=== PATIENT | male | born 1990 | race Caucasian/White ===

== ENCOUNTER 2016-09-02 01:28 | Emergency (ER) | payer OTHER ==
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
--- NOTE | 2016-09-02 02:16 | ED ORDER SUMMARY ---
..... Patient: RADHIKA COOK OrderSheet [facility] VisitID: [id number] [place] [address] 26y, M Registration Date/Time: 09/02/2016 ORDER SHEET Weight: 70.3 kg (stated) Allergies: No Known Drug Allergy GENERAL ORDERS: Hand 3 or 4V Right Urgent (01:58 09/02/2016 Rhonda RILEY) (Ack 2:03 Taya) (2:08 Ignacioger) - (steristrips right index finger.) (02:12 09/02/2016 Rhonda RILEY) (2:30 DBeyer R.N.) Splint (UE) (Right) (Metal / foam) (right index finger) (02:13 09/02/2016 Rhonda RILEY) (2:30 DBeyer R.N.) MEDICATION ORDERS: Hydrocodone-APAP PO 10/650 mg (NOW) (02:13 09/02/2016 Rhonda RILEY) (Ack 2:18 RCollier R.N.) (2:21 DBeyer R.N.) IV FLUIDS: ORDER SHEET NOTES: [Electronically signed by Alvin Hong R.N. (03:00 09/02/2016)] [Electronically signed by Altaf Uriarte MD (20:21 09/03/2016)] [Electronically locked/signed by Alvin Hong R.N. (03:00 09/02/2016)]
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
--- NOTE | 2016-09-02 02:16 | ED ORDER SUMMARY ---
..... Patient: RADHIKA COOK OrderSheet [facility] VisitID: [id number] [place] [address] 26y, M Registration Date/Time: 09/02/2016 ORDER SHEET Weight: 70.3 kg (stated) Allergies: No Known Drug Allergy GENERAL ORDERS: Hand 3 or 4V Right Urgent (01:58 09/02/2016 Rhonda RILEY) (Ack 2:03 Taya) (2:08 Ignacioger) - (steristrips right index finger.) (02:12 09/02/2016 Rhonda RILEY) (2:30 DBeyer R.N.) Splint (UE) (Right) (Metal / foam) (right index finger) (02:13 09/02/2016 Rhonda RILEY) (2:30 DBeyer R.N.) MEDICATION ORDERS: Hydrocodone-APAP PO 10/650 mg (NOW) (02:13 09/02/2016 Rhonda RILEY) (Ack 2:18 RCollier R.N.) (2:21 DBeyer R.N.) IV FLUIDS: ORDER SHEET NOTES: [Electronically signed by Alvin Hong R.N. (03:00 09/02/2016)] [Electronically signed by Altaf Uriarte MD (20:21 09/03/2016)] [Electronically locked/signed by Alvin Hong R.N. (03:00 09/02/2016)]
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
--- NOTE | 2016-09-02 06:09 | DIAGNOSTIC IMAGING REPORT ---
PROCEDURE: XR HAND 3 OR 4 VIEWS - RIGHT INDICATION: TRAUMA/INJURY TECHNIQUE: Three views. COMPARISON: None. FINDINGS: There is soft tissue swelling over the dorsum of the right hand. There is an old healed fracture of the right fifth metacarpal. The rest the osseous structures and joint spaces are normal. There is a radiopaque band overlying the wrist which obscures some of the detail IMPRESSION: 1. Soft tissue swelling of the dorsum, right hand. 2. Old healed fracture of the right fifth metacarpal.
--- NOTE | 2016-09-03 20:21 | ED MAR SUMMARY ---
..... Medication Administration Record [address] [place] [address] Patient: RADHIKA COOK Visit ID: [id number] 26y, M Weight: 70.3 kg Height/Length: 71 in BMI: 21.6 ALLERGIES: No Known Drug Allergy Given 02:21 09/02/2016 Alvin Hong RKwadwoNKwadwo Medication Administered: HYDROCODONE-APAP [PO] (HYDROCODONE-ACETAMINOPHEN), Dose: 2 tablet 5/325 mg Tablets PO. Medication Ordered: Hydrocodone-APAP PO 10/650 mg (NOW).
--- NOTE | 2016-09-03 20:21 | ED DISCHARGE INSTRUCTIONS ---
Patient: RADHIKA COOK General Instructions [facility] VisitID: [id number] [place] [address] 26y, M Registration Date/Time: 09/02/2016 Contusion to the right hand. Single superficial laceration to the right index finger.No foreign body present or right fingernail injury. INSTRUCTIONS Wear aluminum splint until released. Wear elastic wrap (Andrés wrap) as directed as needed. Protect wound and keep wound area clean. Leave dressing in place until seen in follow-up. Do not work with right hand until released. Warnings: INFECTION: Watch for signs of infection (increasing heat and redness, pus-like drainage, swelling, or increased pain). Return or see your doctor if these signs occur. Tetanus shot not given. GENERAL WARNINGS: Return or contact your physician immediately if your condition worsens or changes unexpectedly, if not improving as expected, or if other problems arise. OTC Medications: Acetaminophen (available over the counter): take according to label instructions. Motrin (available over the counter): take according to label instructions. Follow-up: Follow up with your doctor Thursday in four days. Call for an appointment. Understanding of the discharge instructions verbalized by patient. Discharge instructions reviewed with and understanding was verbalized by aircraft painter apprentice. ADDITIONAL INFORMATION Laceration (All Closures) Alaceration is a cut through the skin. This will usually require stitches (sutures) or tahmina if it is deep. Minor cuts may be treated with a surgical tape closure orskin glue. Home care The following guidelines will help you care for your laceration at home: Extremity, face, or trunk wounds Keep the wound clean and dry. If a bandage was applied and it becomes wet or dirty, replace it. Otherwise, leave it in place for the first 24 hours. If stitches or tahmina were used, clean the wound daily. After removing the bandage, wash the area with soap and water. Use a wet cotton swab to loosen and remove any blood or crust that forms. The doctor may prescribe an antibiotic cream or ointment to prevent infection. Do not stop taking this medication until you have finished the prescribed course or the doctor tells you to stop. The doctor may also prescribe medications for pain. Follow the doctors instructions for taking these medications. You may remove the bandage to shower as usual after the first 24 hours, but do not soak the area in water (no swimming) until the stitches or tahmina are removed. If surgical tape was used, keep the area clean and dry. If it becomes wet, blot it dry with a towel. If skin glue was used, do not scratch, rub, or pick at the adhesive film. Do not place tape directly over the film. Do not apply liquid, ointment, or creams to the wound while the film is in place. Do not clean the wound with peroxide and do not apply ointments. Avoid activities that cause heavy sweating until the film has fallen off. Protect the wound from prolonged exposure to sunlight or tanning lamps. You may shower as usual but do not soak the wound in water (no baths or swimming). The film will fall off by itself in 510 days. Scalp wounds During the first two days, you may carefully rinse your hair in the shower to remove blood, glass or dirt particles. After two days, you may shower and shampoo your hair normally. Do not soak your scalp in the tub or go swimming until the stitches or tahmina have been removed. Talk with your doctor before applying any antibiotic ointment to the wound. Mouth wounds Eat soft foods to reduce pain. If the cut is inside of your mouth, clean by rinsing after each meal and at bedtime with a mixture of equal parts water and hydrogen peroxide (do not swallow!). Or, you can use a cotton swab to directly apply hydrogen peroxide onto the cut. Mouth wounds can be painful when eating. You may use an [id number] local numbing solution for pain relief. If this is not available, you may use any numbing solution for teething babies. You may apply this directly to the sores with a cotton-tip swab or with your finger. Follow-up care Follow up with your health care provider. Most skin wounds heal within ten days. Mouth and facial wounds heal within five days. However, even with proper treatment, a wound infection may sometimes occur. Therefore, you should check the wound daily for signs of infection listed below. Stitches should be removed from the face within five days; stitches and tahmina should be removed from other parts of the body within 714 days. If dissolving stitches were used in the mouth, these will fall out or dissolve without the need for removal. If tape closures were used, remove them yourself if they have not fallen off after 7 days. Ifskin glue was used, the film will fall off by itself in 510 days. When to seek medical care Get prompt medical attention if any of these occur: Bleeding not controlled by direct pressure Signs of infection, including increasing pain in the wound, increasing wound redness or swelling, or pus coming from the wound Fever of 100.4F (38C) or higher, or as directed by your health care provider Stitches or tahmina come apart or fall out or surgical tape falls off before 7 days Wound edges re-open Contusion,Soft Tissue You have a CONTUSION, which is a bruise with swelling and some bleeding under the skin. There are no broken bones. This injury takes a few days to a few weeks to heal. Home Care: 1) Keep the injured part elevated to reduce pain and swelling. This is especially important during the first 48 hours. 2) Make an ice pack (ice cubes in a plastic bag, wrapped in a towel) and apply for 20 minutes every 1-2 hours the first day. Continue this 3-4 times a day until the pain and swelling goes away. 3) You may use acetaminophen (Tylenol) or ibuprofen (Motrin, Advil) to control pain, unless another pain medicine was prescribed. [ NOTE : If you have chronic liver or kidney disease or ever had a stomach ulcer or GI bleeding, talk with your doctor before using these medicines.] Follow Up with your doctor or this facility if you are not improving within the next THREE days. [NOTE: If X-rays were taken, they will be reviewed by a radiologist. You will be notified of any new findings that may affect your care.] Get Prompt Medical Attention if any of the following occur: -- Pain or swelling increases -- Injured arm or leg becomes cold, blue, numb or tingly -- Redness, warmth or drainage from the skin Andrés Wrap An "Andrés Bandage" refers to any elastic bandage wrap (2-6" wide). This is used to apply support and compression to an arm or leg. It will help prevent or reduce swelling also. When applying the bandage, it should not be stretched too tightly. A tight Andrés Wrap will reduce circulation and cause tingling or numbness in the hand or foot. It may increase the pain under the bandage. If you get these symptoms, remove the wrap and rest the limb. Symptoms should go away within 1-2 hours. Once symptoms go away, reapply the bandage with less stretch. If symptoms do not go away after 1-2 hours with the bandage off, call your doctor or return to this facility promptly. Laceration, Extremity (Sutures, Tahmina, Or Tape) A laceration is a cut through the skin. This will usually require stitches (sutures) or tahmina if it is deep. Minor cuts may be treated with surgical tape closures. Home care The following guidelines will help you care for your laceration at home: Keep the wound clean and dry. If a bandage was applied and it becomes wet or dirty, replace it. Otherwise, leave it in place for the first 24 hours, then change it once a day or as directed. If stitches or tahmina were used, clean the wound daily: After removing the bandage, wash the area with soap and water. Use a wet cotton swab to loosen and remove any blood or crust that forms. After cleaning, keep the wound clean and dry. Talk with your doctor before applying any antibiotic ointment to the wound. Reapply the bandage. You may remove the bandage to shower as usual after the first 24 hours, but do not soak the area in water (no swimming) until the stitches or tahmina are removed. If surgical tape closures were used, keep the area clean and dry. If it becomes wet, blot it dry with a towel. The doctor may prescribe an antibiotic cream or ointment to prevent infection. Do not stop taking this medication until you have finished the prescribed course or the doctor tells you to stop. The doctor may also prescribe medications for pain. Follow the doctors instructions for taking these medications. If you have chronic liver or kidney disease or ever had a stomach ulcer or GI bleeding, talk with your doctor before using these medicines. Follow-up care Follow up with your health care provider. Most skin wounds heal within ten days. However, an infection may sometimes occur despite proper treatment. Therefore, check the wound daily for the signs of infection listed below. Stitches and tahmina should be removed within 714 days. If surgical tape closures were used, you may remove them after 10 days, if they have not fallen off by then. Notify your doctor if you notice persistent numbness or weakness in the injured extremity. (Note:A radiologist will review any X-rays that were taken. We will notify you of any new findings that may affect your care.) When to seek medical care Get prompt medical attention if any of these occur: Increasing pain in the wound Redness, swelling, or pus coming from the wound Fever of 100.4F (38C) or higher, or as directed by your health care provider If stitches or tahmina come apart or fall out before your next appointment If the surgical tape closures fall off within seven days, or the wound edges re-open Bleeding not controlled by direct pressure You have been given the following additional information: Laceration, All Contusion, Soft Tissue Andrés Wrap Laceration, Extrem (Suture, Staple, Or Tape) Do not work with right hand until released. (Electronically signed by Altaf Uriarte MD 09/03/2016 20:21)
--- NOTE | 2016-09-03 20:21 | ED MED RECONCILIATION SUMMARY ---
Patient: RADHIKA COOK Medication Reconciliation Report [facility] VisitID: [id number] [place] [address] 26y, M Registration Date/Time: 09/02/2016 Weight: 70.3 kg Height/Length: 71 in. BMI: 21.6 ALLERGIES: No Known Drug Allergy The patient's Home Medications are listed below: NONE. The source(s) of the original Home Medication information: Not obtained. The following Medications were given to the patient in the Emergency Department: Hydrocodone-APAP [PO] PO 2 tablet, administered: 09/02/2016 2:21:00 AM The following Medications were prescribed to the patient: Acetaminophen (available over the counter): take according to label instructions. -- Altaf Uriarte MD Motrin (available over the counter): take according to label instructions. -- Altaf Uriarte MD
--- NOTE | 2016-09-03 20:21 | ED MED RECONCILIATION SUMMARY ---
Patient: RADHIKA COOK Medication Reconciliation Report [facility] VisitID: [id number] [place] [address] 26y, M Registration Date/Time: 09/02/2016 Weight: 70.3 kg Height/Length: 71 in. BMI: 21.6 ALLERGIES: No Known Drug Allergy The patient's Home Medications are listed below: NONE. The source(s) of the original Home Medication information: Not obtained. The following Medications were given to the patient in the Emergency Department: Hydrocodone-APAP [PO] PO 2 tablet, administered: 09/02/2016 2:21:00 AM The following Medications were prescribed to the patient: Acetaminophen (available over the counter): take according to label instructions. -- Altaf Uriarte MD Motrin (available over the counter): take according to label instructions. -- Altaf Uriarte MD
--- NOTE | 2016-09-03 20:21 | ED MAR SUMMARY ---
..... Medication Administration Record [address] [place] [address] Patient: RADHIKA COOK Visit ID: [id number] 26y, M Weight: 70.3 kg Height/Length: 71 in BMI: 21.6 ALLERGIES: No Known Drug Allergy Given 02:21 09/02/2016 Alvin Hong RKwadwoNKwadwo Medication Administered: HYDROCODONE-APAP [PO] (HYDROCODONE-ACETAMINOPHEN), Dose: 2 tablet 5/325 mg Tablets PO. Medication Ordered: Hydrocodone-APAP PO 10/650 mg (NOW).
== END 2016-09-02 02:52 | disposition home or self-care (01) ==
LOC: ED SRH 01:28
DX: S61.210A Laceration without foreign body of right index finger without damage to nail, initial encounter (principal); S60.221A Contusion of right hand, initial encounter; F17.210 Nicotine dependence, cigarettes, uncomplicated; W22.8XXA Striking against or struck by other objects, initial encounter; Y92.9 Unspecified place or not applicable; Y93.9 Activity, unspecified; Y99.9 Unspecified external cause status

== ENCOUNTER 2016-10-28 17:39 | Emergency (ER) | payer OTHER ==
--- NOTE | 2016-10-28 18:44 | ED ORDER SUMMARY ---
..... Patient: RADHIKA COOK OrderSheet [facility] VisitID: [id number] [place] [address] 26y, M Registration Date/Time: 10/28/2016 ORDER SHEET Weight: 68.0 kg (stated) Allergies: No Known Drug Allergy GENERAL ORDERS: MEDICATION ORDERS: Bactrim DS PO (Tablet 800-160 mg) 1 tab (NOW) (18:40 10/28/2016 Ramya Cunha) (Ack 18:49 Tamika R.N.) (18:49 Tamika R.N.) IV FLUIDS: ORDER SHEET NOTES: [Electronically signed by Basilia Escudero P.A.-C (18:47 10/28/2016)] [Electronically signed by Herb Duran R.N. (18:54 10/28/2016)] [Electronically locked/signed by Herb Duran R.N. (18:54 10/28/2016)]
--- NOTE | 2016-10-28 18:44 | ED NURSING NOTES ---
Clinical Report - Nurses [facility] [address] [place] [address] 10/28/2016 17:42 Patient: RADHIKA COOK TRIAGE Triage time 18:29. Acuity: LEVEL 4. Chief Complaint: SKIN LESION and TENDER AREA. --18:33 Neelima Holloway R.N. 18:29 10/28/16. BP: 132/84. HR: 111. RR: 16. O2 saturation: 99%. Temp: 98.4 F. Pain level now: 03/12. --18:33 Neelima Holloway R.N. Weight: 68 kg stated. Height/Length: 71 inches Per Patient. BMI: 20.9. --18:29 Neelima Holloway R.N. Medications None. --18:31 Neelima Holloway R.N. Allergies No Known Drug Allergy. --18:31 Neelima Holloway R.N. History Arrived by private vehicle. Historian: patient. Location - right leg and left leg. It is described as itchy and painful. ( patient has scabs all over LE, admits to meth). --18:33 Neelima Holloway R.N. PROBLEMS: Substance Abuse. --18:32 Neelima Holloway R.N. Interventions ID band on patient. To treatment room. --18:33 Neelima Holloway R.N. PHYSICAL ASSESSMENT GENERAL / NEURO / PSYCH: Alert. The patient does not appear to be in acute distress. Oriented X 4. HEENT: Mucous membranes are pink. RESPIRATORY: Respirations not labored. Breath sounds within normal limits. CVS: Capillary refill less than 2 seconds. Pulses within normal limits. GI / : Abdomen nontender. SKIN: Skin lesion present. Drainage. Increased warmth present. Erythema present. --18:34 Neelima Holloway R.N. NURSING PROGRESS NOTES The plan of care for this patient has been created. Patient gowned. Head of bed elevated. Patient identifiers checked. Side rails up x 1. Bed placed in lowest position. Brakes of bed on. Patient ready for evaluation- chart flagged. --18:34 Neelima Holloway R.N. 18:49 10/28/2016 Bactrim DS (Sulfamethoxazole-TMP DS) PO 1 tab given. Allergies verified and confirmed 5 rights. --18:49 Herb Duran R.N. DISPOSITION / DISCHARGE 18:51 10/28/16. The goals identified in the patient's plan of care were met. No learning barriers present. Discharge instructions provided and reviewed with the patient. Reviewed warnings. Reviewed medication(s). Treatments reviewed. Patient verbalized understanding. Written instructions provided in Uzbek. The patient was discharged by the physician. He was discharged home and accompanied by granite chip terrazzo finisher. He left the Emergency Department ambulatory and via private vehicle. Emergency Department Technician driving. FALL RISK ASSESSMENT: Fall risk assessment completed. No fall risk identified. --18:51 Herb Duran R.N. 18:51 10/28/16. BP: deferred. HR: deferred. RR: deferred. O2 saturation: deferred. Temp: deferred. Pain level now: 2/10. Additional comments: Refused DC vitals. --18:51 Herb Duran R.N. 18:51 10/28/16. Departure time: 18:51. --18:51 Herb Duran R.N. Locked/Released at 10/28/2016 18:54 by Herb Duran R.N.
--- NOTE | 2016-10-28 18:44 | ED ORDER SUMMARY ---
..... Patient: RADHIKA COOK OrderSheet [facility] VisitID: [id number] [place] [address] 26y, M Registration Date/Time: 10/28/2016 ORDER SHEET Weight: 68.0 kg (stated) Allergies: No Known Drug Allergy GENERAL ORDERS: MEDICATION ORDERS: Bactrim DS PO (Tablet 800-160 mg) 1 tab (NOW) (18:40 10/28/2016 Ramya Cunha) (Ack 18:49 Tamika R.N.) (18:49 Tamika R.N.) IV FLUIDS: ORDER SHEET NOTES: [Electronically signed by Basilia Escudero P.A.-C (18:47 10/28/2016)] [Electronically signed by Herb Duran R.N. (18:54 10/28/2016)] [Electronically locked/signed by Herb Duran R.N. (18:54 10/28/2016)]
--- NOTE | 2016-10-28 18:44 | ED CLINICAL REPORT ---
Clinical Report - Physicians/Mid Levels [facility] [address] [place] [address] 10/28/2016 17:42 Patient: RADHIKA COOK Time Seen: 18:32; initial patient contact. Arrived- By private vehicle. HISTORY OF PRESENT ILLNESS Chief Complaint: SKIN RASH. (Patient presents with sores on legs over the last few weeks. Reports history of meth use. Reports things crawling on his skin. Reports things have been possibly draining from the wound. Denies any fevers. Denies any injury. Denies any shortness of breath or chest pain.). REVIEW OF SYSTEMS No fever, difficulty breathing or lump in throat. All systems otherwise negative, except as recorded above. PAST HISTORY Problems: Substance Abuse. Laceration. Contusion. Medications: None. Allergies: No Known Drug Allergy. SOCIAL HISTORY History of heavy IV drug use: methamphetamines. ADDITIONAL NOTES The nursing notes have been reviewed. PHYSICAL EXAM Vital Signs: 10/28/2016 18:29 BP: 132/84. HR: 111. RR: 16. O2 saturation: 99%. Temp: 98.4 F. Pain level now: 8/10. Appearance: Alert. ENT: Ears normal. Nose normal. Pharynx normal. No pharyngeal erythema or swelling. Neck: Neck supple. No lymphadenopathy. CVS: Normal heart rate and rhythm. Heart sounds normal. Respiratory: No respiratory distress. Breath sounds normal. Abdomen: No abdominal tenderness. Skin: No erythema. No tender indurated area. No cellulitis. Rash present on the trunk. Rash present on the right lower extremity and left lower extremity. The rash is maculopapular. PROGRESS AND PROCEDURES Course of Care: Patient here in the ER with multiple lesions, I less than ermelinda size on bilateral lower extremities, as well as abdomen, no surrounding swelling, or erythema. Scab-looking I, patient's actively picking at these lesions, suspect MRSA, afebrile with no sob/ chest pain. 10/28/2016 18:29 BP: 132/84. HR: 111. RR: 16. O2 saturation: 99%. Temp: 98.4 F. Pain level now: 03/12. Patient is stable. Patient/family counseled. Disposition: Discharged. CLINICAL IMPRESSION Substance abuse problems: abuse of methamphetamine. MRSA (Methicillin resistant Staph aureus) located on the right thigh, right lower leg, left thigh and left lower leg. INSTRUCTIONS Prescription Medications: Bactrim DS 800 mg / 160 mg: take 1 tablet orally every 12 hours for 10 days. No refill. Substitution is permissible. Follow-up: Follow up with your doctor in three as needed. (Electronically signed by Basilai Escudero P.A.-C 10/28/2016 18:47)
--- NOTE | 2016-10-28 18:44 | ED NURSING NOTES ---
Clinical Report - Nurses [facility] [address] [place] [address] 10/28/2016 17:42 Patient: RADHIKA COOK TRIAGE Triage time 18:29. Acuity: LEVEL 4. Chief Complaint: SKIN LESION and TENDER AREA. --18:33 Neelima Holloway R.N. 18:29 10/28/16. BP: 132/84. HR: 111. RR: 16. O2 saturation: 99%. Temp: 98.4 F. Pain level now: 03/12. --18:33 Neelima Holloway R.N. Weight: 68 kg stated. Height/Length: 71 inches Per Patient. BMI: 20.9. --18:29 Neelima Holloway R.N. Medications None. --18:31 Neelima Holloway R.N. Allergies No Known Drug Allergy. --18:31 Neelima Holloway R.N. History Arrived by private vehicle. Historian: patient. Location - right leg and left leg. It is described as itchy and painful. ( patient has scabs all over LE, admits to meth). --18:33 Neelima Holloway R.N. PROBLEMS: Substance Abuse. --18:32 Neelima Holloway R.N. Interventions ID band on patient. To treatment room. --18:33 Neelima Holloway R.N. PHYSICAL ASSESSMENT GENERAL / NEURO / PSYCH: Alert. The patient does not appear to be in acute distress. Oriented X 4. HEENT: Mucous membranes are pink. RESPIRATORY: Respirations not labored. Breath sounds within normal limits. CVS: Capillary refill less than 2 seconds. Pulses within normal limits. GI / : Abdomen nontender. SKIN: Skin lesion present. Drainage. Increased warmth present. Erythema present. --18:34 Neelima Holloway R.N. NURSING PROGRESS NOTES The plan of care for this patient has been created. Patient gowned. Head of bed elevated. Patient identifiers checked. Side rails up x 1. Bed placed in lowest position. Brakes of bed on. Patient ready for evaluation- chart flagged. --18:34 Neelima Holloway R.N. 18:49 10/28/2016 Bactrim DS (Sulfamethoxazole-TMP DS) PO 1 tab given. Allergies verified and confirmed 5 rights. --18:49 Herb Duran R.N. DISPOSITION / DISCHARGE 18:51 10/28/16. The goals identified in the patient's plan of care were met. No learning barriers present. Discharge instructions provided and reviewed with the patient. Reviewed warnings. Reviewed medication(s). Treatments reviewed. Patient verbalized understanding. Written instructions provided in Faroese. The patient was discharged by the physician. He was discharged home and accompanied by head automatic sawyer. He left the Emergency Department ambulatory and via private vehicle. Biller driving. FALL RISK ASSESSMENT: Fall risk assessment completed. No fall risk identified. --18:51 Herb Duran R.N. 18:51 10/28/16. BP: deferred. HR: deferred. RR: deferred. O2 saturation: deferred. Temp: deferred. Pain level now: 2/10. Additional comments: Refused DC vitals. --18:51 Herb Duran R.N. 18:51 10/28/16. Departure time: 18:51. --18:51 Herb Duran R.N. Locked/Released at 10/28/2016 18:54 by Herb Duran R.N.
--- NOTE | 2016-10-28 18:44 | ED CLINICAL REPORT ---
Clinical Report - Physicians/Mid Levels [facility] [address] [place] [address] 10/28/2016 17:42 Patient: RADHIKA COOK Time Seen: 18:32; initial patient contact. Arrived- By private vehicle. HISTORY OF PRESENT ILLNESS Chief Complaint: SKIN RASH. (Patient presents with sores on legs over the last few weeks. Reports history of meth use. Reports things crawling on his skin. Reports things have been possibly draining from the wound. Denies any fevers. Denies any injury. Denies any shortness of breath or chest pain.). REVIEW OF SYSTEMS No fever, difficulty breathing or lump in throat. All systems otherwise negative, except as recorded above. PAST HISTORY Problems: Substance Abuse. Laceration. Contusion. Medications: None. Allergies: No Known Drug Allergy. SOCIAL HISTORY History of heavy IV drug use: methamphetamines. ADDITIONAL NOTES The nursing notes have been reviewed. PHYSICAL EXAM Vital Signs: 10/28/2016 18:29 BP: 132/84. HR: 111. RR: 16. O2 saturation: 99%. Temp: 98.4 F. Pain level now: 8/10. Appearance: Alert. ENT: Ears normal. Nose normal. Pharynx normal. No pharyngeal erythema or swelling. Neck: Neck supple. No lymphadenopathy. CVS: Normal heart rate and rhythm. Heart sounds normal. Respiratory: No respiratory distress. Breath sounds normal. Abdomen: No abdominal tenderness. Skin: No erythema. No tender indurated area. No cellulitis. Rash present on the trunk. Rash present on the right lower extremity and left lower extremity. The rash is maculopapular. PROGRESS AND PROCEDURES Course of Care: Patient here in the ER with multiple lesions, I less than ermelinda size on bilateral lower extremities, as well as abdomen, no surrounding swelling, or erythema. Scab-looking I, patient's actively picking at these lesions, suspect MRSA, afebrile with no sob/ chest pain. 10/28/2016 18:29 BP: 132/84. HR: 111. RR: 16. O2 saturation: 99%. Temp: 98.4 F. Pain level now: 03/12. Patient is stable. Patient/family counseled. Disposition: Discharged. CLINICAL IMPRESSION Substance abuse problems: abuse of methamphetamine. MRSA (Methicillin resistant Staph aureus) located on the right thigh, right lower leg, left thigh and left lower leg. INSTRUCTIONS Prescription Medications: Bactrim DS 800 mg / 160 mg: take 1 tablet orally every 12 hours for 10 days. No refill. Substitution is permissible. Follow-up: Follow up with your doctor in three as needed. (Electronically signed by Basilia Escudero P.A.-C 10/28/2016 18:47)
--- NOTE | 2016-10-28 18:54 | ED MED RECONCILIATION SUMMARY ---
Patient: RADHIKA COOK Medication Reconciliation Report [facility] VisitID: [id number] [address] [place] [address] 26y, M Registration Date/Time: 10/28/2016 Weight: 68.0 kg Height/Length: 71 in. BMI: 20.9 ALLERGIES: No Known Drug Allergy The patient's Home Medications are listed below: NONE. The source(s) of the original Home Medication information: Not obtained. The following Medications were given to the patient in the Emergency Department: Bactrim DS [PO] PO 1 tab, administered: 10/28/2016 6:49:00 PM The following Medications were prescribed to the patient: Bactrim DS 800 mg / 160 mg: take 1 tablet orally every 12 hours for 10 days. No refill. Substitution is permissible. -- Basilia Escudero PKwadwoAAlemC
--- NOTE | 2016-10-28 18:54 | ED MED RECONCILIATION SUMMARY ---
Patient: RADHIKA COOK Medication Reconciliation Report [facility] VisitID: [id number] [address] [place] [address] 26y, M Registration Date/Time: 10/28/2016 Weight: 68.0 kg Height/Length: 71 in. BMI: 20.9 ALLERGIES: No Known Drug Allergy The patient's Home Medications are listed below: NONE. The source(s) of the original Home Medication information: Not obtained. The following Medications were given to the patient in the Emergency Department: Bactrim DS [PO] PO 1 tab, administered: 10/28/2016 6:49:00 PM The following Medications were prescribed to the patient: Bactrim DS 800 mg / 160 mg: take 1 tablet orally every 12 hours for 10 days. No refill. Substitution is permissible. -- Basilia Escudero PKwadwoAAlemC
--- NOTE | 2016-10-28 18:54 | ED DISCHARGE INSTRUCTIONS ---
Patient: RADHIKA COOK General Instructions [facility] VisitID: [id number] [place] [address] 26y, M Registration Date/Time: 10/28/2016 Substance abuse problems: abuse of methamphetamine. MRSA (Methicillin resistant Staph aureus) located on the right thigh, right lower leg, left thigh and left lower leg. INSTRUCTIONS Prescription Medications: Bactrim DS 800 mg / 160 mg: take 1 tablet orally every 12 hours for 10 days. No refill. Substitution is permissible. Follow-up: Follow up with your doctor in three as needed. ADDITIONAL INFORMATION Sulfamethoxazole, Trimethoprim Oral tablet What is this medicine? SULFAMETHOXAZOLE; TRIMETHOPRIM or SMX-TMP (suhl fuh meth OK kiara zohl; trye METH oh prim) is a combination of a sulfonamide antibiotic and a second antibiotic, trimethoprim. It is used to treat or prevent certain kinds of bacterial infections. It will not work for colds, flu, or other viral infections. How should I use this medicine? Take this medicine by mouth with a full glass of water. Follow the directions on the prescription label. Take your medicine at regular intervals. Do not take it more often than directed. Do not skip doses or stop your medicine early. Talk to your trailer body assembler regarding the use of this medicine in children. Special care may be needed. This medicine has been used in children as young as 2 months of age. What side effects may I notice from receiving this medicine? Side effects that you should report to your doctor or health rn palliative care as soon as possible: allergic reactions like skin rash or hives, swelling of the face, lips, or tongue breathing problems fever or chills, sore throat irregular heartbeat, chest pain joint or muscle pain pain or difficulty passing urine red pinpoint spots on skin redness, blistering, peeling or loosening of the skin, including inside the mouth unusual bleeding or bruising unusually weak or tired yellowing of the eyes or skin Side effects that usually do not require medical attention (report to your doctor or health rn palliative care if they continue or are bothersome): diarrhea dizziness headache loss of appetite nausea, vomiting nervousness What may interact with this medicine? Do not take this medicine with any of the following medications: aminobenzoate potassium dofetilide metronidazole This medicine may also interact with the following medications: KING inhibitors like benazepril, enalapril, lisinopril, and ramipril cyclosporine digoxin diuretics indomethacin medicines for diabetes methenamine methotrexate phenytoin potassium supplements pyrimethamine sulfinpyrazone tricyclic antidepressants warfarin What if I miss a dose? If you miss a dose, take it as soon as you can. If it is almost time for your next dose, take only that dose. Do not take double or extra doses. Where should I keep my medicine? Keep out of the reach of children. Store at room temperature between 20 to 25 degrees C (68 to 77 degrees F). Protect from light. Throw away any unused medicine after the expiration date. What should I tell my health care provider before I take this medicine? They need to know if you have any of these conditions: anemia asthma being treated with anticonvulsants if you frequently drink alcohol containing drinks kidney disease liver disease low level of folic acid or [id number] dehydrogenase poor nutrition or malabsorption porphyria severe allergies thyroid disorder an unusual or allergic reaction to sulfamethoxazole, trimethoprim, sulfa drugs, other medicines, foods, dyes, or preservatives or trying to get breast-feeding What should I watch for while using this medicine? Tell your doctor or health rn palliative care if your symptoms do not improve. Drink several glasses of water a day to reduce the risk of kidney problems. Do not treat diarrhea with over the counter products. Contact your doctor if you have diarrhea that lasts more than 2 days or if it is severe and watery. This medicine can make you more sensitive to the sun. Keep out of the sun. If you cannot avoid being in the sun, wear protective clothing and use a sunscreen. Do not use sun lamps or tanning beds/booths. You have been given the following additional information: Sulfamethoxazole, Trimethoprim Oral tablet (Electronically signed by Basilia Escudero P.A.-C 10/28/2016 18:47)
--- NOTE | 2016-10-28 18:54 | ED MAR SUMMARY ---
..... Medication Administration Record Located Within [facility] [address] [place] [address] Patient: RADHIKA COOK Visit ID: [id number] 26y, M Weight: 68.0 kg Height/Length: 71 in BMI: 20.9 ALLERGIES: No Known Drug Allergy Given 18:49 10/28/2016 Herb Duran R.N. Medication Administered: BACTRIM DS [PO] (SULFAMETHOXAZOLE-TMP DS), Dose: 1 tab PO. Medication Ordered: Bactrim DS PO (Tablet 800-160 mg) 1 tab (NOW).
--- NOTE | 2016-10-28 18:54 | ED DISCHARGE INSTRUCTIONS ---
Patient: RADHIKA COOK General Instructions [facility] VisitID: [id number] [place] [address] 26y, M Registration Date/Time: 10/28/2016 Substance abuse problems: abuse of methamphetamine. MRSA (Methicillin resistant Staph aureus) located on the right thigh, right lower leg, left thigh and left lower leg. INSTRUCTIONS Prescription Medications: Bactrim DS 800 mg / 160 mg: take 1 tablet orally every 12 hours for 10 days. No refill. Substitution is permissible. Follow-up: Follow up with your doctor in three as needed. ADDITIONAL INFORMATION Sulfamethoxazole, Trimethoprim Oral tablet What is this medicine? SULFAMETHOXAZOLE; TRIMETHOPRIM or SMX-TMP (suhl fuh meth OK kiara zohl; trye METH oh prim) is a combination of a sulfonamide antibiotic and a second antibiotic, trimethoprim. It is used to treat or prevent certain kinds of bacterial infections. It will not work for colds, flu, or other viral infections. How should I use this medicine? Take this medicine by mouth with a full glass of water. Follow the directions on the prescription label. Take your medicine at regular intervals. Do not take it more often than directed. Do not skip doses or stop your medicine early. Talk to your biomass facilitator regarding the use of this medicine in children. Special care may be needed. This medicine has been used in children as young as 2 months of age. What side effects may I notice from receiving this medicine? Side effects that you should report to your doctor or health pharmacy customer care specialist as soon as possible: allergic reactions like skin rash or hives, swelling of the face, lips, or tongue breathing problems fever or chills, sore throat irregular heartbeat, chest pain joint or muscle pain pain or difficulty passing urine red pinpoint spots on skin redness, blistering, peeling or loosening of the skin, including inside the mouth unusual bleeding or bruising unusually weak or tired yellowing of the eyes or skin Side effects that usually do not require medical attention (report to your doctor or health pharmacy customer care specialist if they continue or are bothersome): diarrhea dizziness headache loss of appetite nausea, vomiting nervousness What may interact with this medicine? Do not take this medicine with any of the following medications: aminobenzoate potassium dofetilide metronidazole This medicine may also interact with the following medications: KING inhibitors like benazepril, enalapril, lisinopril, and ramipril cyclosporine digoxin diuretics indomethacin medicines for diabetes methenamine methotrexate phenytoin potassium supplements pyrimethamine sulfinpyrazone tricyclic antidepressants warfarin What if I miss a dose? If you miss a dose, take it as soon as you can. If it is almost time for your next dose, take only that dose. Do not take double or extra doses. Where should I keep my medicine? Keep out of the reach of children. Store at room temperature between 20 to 25 degrees C (68 to 77 degrees F). Protect from light. Throw away any unused medicine after the expiration date. What should I tell my health care provider before I take this medicine? They need to know if you have any of these conditions: anemia asthma being treated with anticonvulsants if you frequently drink alcohol containing drinks kidney disease liver disease low level of folic acid or [id number] dehydrogenase poor nutrition or malabsorption porphyria severe allergies thyroid disorder an unusual or allergic reaction to sulfamethoxazole, trimethoprim, sulfa drugs, other medicines, foods, dyes, or preservatives or trying to get breast-feeding What should I watch for while using this medicine? Tell your doctor or health pharmacy customer care specialist if your symptoms do not improve. Drink several glasses of water a day to reduce the risk of kidney problems. Do not treat diarrhea with over the counter products. Contact your doctor if you have diarrhea that lasts more than 2 days or if it is severe and watery. This medicine can make you more sensitive to the sun. Keep out of the sun. If you cannot avoid being in the sun, wear protective clothing and use a sunscreen. Do not use sun lamps or tanning beds/booths. You have been given the following additional information: Sulfamethoxazole, Trimethoprim Oral tablet (Electronically signed by Basilia Escudero P.A.-C 10/28/2016 18:47)
--- NOTE | 2016-10-28 18:54 | ED MAR SUMMARY ---
..... Medication Administration Record [facility] [address] [place] [address] Patient: RADHIKA COOK Visit ID: [id number] 26y, M Weight: 68.0 kg Height/Length: 71 in BMI: 20.9 ALLERGIES: No Known Drug Allergy Given 18:49 10/28/2016 Herb Duran R.N. Medication Administered: BACTRIM DS [PO] (SULFAMETHOXAZOLE-TMP DS), Dose: 1 tab PO. Medication Ordered: Bactrim DS PO (Tablet 800-160 mg) 1 tab (NOW).
== END 2016-10-28 18:51 | disposition home or self-care (01) ==
LOC: ED SRH 17:39
DX: B95.62 Methicillin resistant Staphylococcus aureus infection as the cause of diseases classified elsewhere (principal); F15.10 Other stimulant abuse, uncomplicated